=== PATIENT | female | born 1945 | race Caucasian/White ===

== ENCOUNTER → 2016-05-31 | Outpatient (CLI) | payer MEDICARE, OTHER ==
[~2016-05-31] MED LIST: ALLO100T30 PO; ASPI81TA50 PO; CHOL500014 PO; CINA30TA PO; CYCL5TAB PO; FOLI-17 PO; FURO40TA6 PO; HYDR-3240 PO; METO25TA35 PO; OMEP-110 PO; SEVE800T8 PO; SODI650T PO; VITA1TAB68 PO
== END | disposition home or self-care (01) ==
LOC: CFH 09:23
PROVIDERS: ATTEND Specialist
DX: C21.0 Malignant neoplasm of anus, unspecified (principal); N28.1 Cyst of kidney, acquired; M54.5 Low back pain; M51.36 Other intervertebral disc degeneration, lumbar region; M48.06 Spinal stenosis, lumbar region
CPT/HCPCS: 72148

== ENCOUNTER → 2016-07-03 | Outpatient (CLI) | payer MEDICARE, OTHER ==
[~2016-07-03] MED LIST changes: +GADOBUTROL 7.5 MMOL/7.5 ML PFS ONE
== END | disposition home or self-care (01) ==
LOC: CFH 09:14
PROVIDERS: ATTEND Radiology Radiation Oncology
DX: D33.3 Benign neoplasm of cranial nerves (principal); I67.82 Cerebral ischemia; G93.89 Other specified disorders of brain; G31.89 Other specified degenerative diseases of nervous system
CPT/HCPCS: 70553; A9585

== ENCOUNTER → 2016-07-04 | Outpatient (CLI) | payer MEDICARE, OTHER ==
[~2016-07-04] MED LIST changes: -GADOBUTROL 7.5 MMOL/7.5 ML PFS ONE
== END | disposition home or self-care (01) ==
LOC: ROC 11:14
PROVIDERS: ATTEND Radiology Radiation Oncology
DX: D33.3 Benign neoplasm of cranial nerves (principal); H91.92 Unspecified hearing loss, left ear; H93.12 Tinnitus, left ear
CPT/HCPCS: G0463

== ENCOUNTER 2016-07-05 06:27 | Day surgery (SDC) | payer MEDICARE, OTHER ==
[~2016-07-05] VITALS: Ht 149.9 cm; Wt 80.0 kg
[2016-07-05 07:50] VITALS: BP 134/74
[2016-07-05] MEDS ORDERED: MIDAZOLAM 1 MG/ML, 5ML ONE (08:19)
[2016-07-05] MEDS ORDERED: FENTANYL PF 100 MCG/2ML ONE (08:19)
[2016-07-05] MEDS ORDERED: NALOXONE 1 MG/ML, 2ML ONE (08:19)
[2016-07-05] MEDS ORDERED: FLUMAZENIL 0.1 MG/1 ML, 5ML ONE (08:19)
== END 2016-07-05 10:50 | disposition home or self-care (01) ==
LOC: OUT 06:27
PROVIDERS: ATTEND Specialist
DX: D21.6 Benign neoplasm of connective and other soft tissue of trunk, unspecified (principal); C21.0 Malignant neoplasm of anus, unspecified; Z90.710 Acquired absence of both cervix and uterus; Z86.73 Personal history of transient ischemic attack (TIA), and cerebral infarction without residual deficits; M19.90 Unspecified osteoarthritis, unspecified site; I12.9 Hypertensive chronic kidney disease with stage 1 through stage 4 chronic kidney disease, or unspecified chronic kidney disease; N18.9 Chronic kidney disease, unspecified
CPT/HCPCS: 20206; 77012; 88304; 88341; 88342; 99156; 99157; J2250; J3010; G0461; J2310

== ENCOUNTER → 2017-02-12 | Outpatient (CLI) | payer MEDICARE, OTHER ==
[~2017-02-12] MED LIST changes: -CHOL500014 PO; +CHOL500045 PO; -CINA30TA PO; +CINA30TA2 PO
== END | disposition home or self-care (01) ==
LOC: CFH 13:45
PROVIDERS: ATTEND Obstetrics & Gynecology Gynecology
DX: Z12.31 Encounter for screening mammogram for malignant neoplasm of breast (principal)
CPT/HCPCS: 77063; G0202

== ENCOUNTER → 2017-08-01 | Outpatient (CLI) | payer MEDICARE, OTHER | END | disposition home or self-care (01) | LOC: CFH 10:38 | PROVIDERS: ATTEND Neurological Surgery | DX: G31.89 Other specified degenerative diseases of nervous system (principal); D33.3 Benign neoplasm of cranial nerves | CPT/HCPCS: 70551 ==